=== PATIENT | female | born 2000 | race Asian ===

== ENCOUNTER 2019-12-20 21:38 | Emergency (ER) | payer OTHER ==
[~2019-12-20] VITALS: Ht 160 cm; Wt 66.4 kg
[2019-12-20 22:02] VITALS: Ht 160 cm; Wt 66.4 kg
[2019-12-20 22:25] VITALS: BP 139/81
== END 2019-12-20 22:25 | disposition home or self-care (01) ==
LOC: ED 21:38
DX: B34.9 Viral infection, unspecified (principal)